=== PATIENT | female | born 1945 | race Caucasian/White ===

== ENCOUNTER 2017-11-30 18:08 | Emergency (ER) | payer OTHER ==
[2017-11-30 18:29] VITALS: BP 120/34
--- NOTE | 2017-11-30 18:58 | UC ---
Respiratory Complaint HPI - HPI Summary HPI Summary: C/O increased SOB last 3 days with some weakness. Fell down stairs today. - History of Current Complaint Stated Complaint: FLU SXS Hx Obtained From: Patient Onset/Duration: Sudden Onset, Lasting Days - 3, Worse Since - today Timing: Constant Severity Initially: Mild Severity Currently: Moderate Pain Intensity: 5 Character: Cough: Nonproductive Aggravating Factors: Exertion, Deep Breaths Alleviating Factors: Bronchodilator Associated Signs And Symptoms: Positive: Dyspnea, Fever, Chills, Nasal Congestion, Sinus Discomfort - Allergies/Home Medications Allergies/Adverse Reactions: Allergies Allergy/AdvReac Type Severity Reaction Status Date / Time MS Pseudoephedrine Allergy Intermediate Rash Verified 06/23/13 19:30 [Pseudoephedrine] MS Eggs or Egg-derived Allergy Unknown Unknown Verified 11/30/17 18:20 Products Reaction [Eggs or Egg-derived Details Products] Home Medications: Home Medications Aspirin Low Dose CHEW TAB* [Aspirin Low Dose TAB*] 81 mg PO DAILY 11/30/17 [ History Confirmed 11/30/17] Levothyroxine TAB* [Synthorid 112 MCG TAB*] 112 mcg PO DAILY 11/30/17 [History Confirmed 11/30/17] Lisinopril [Lisinopril 2.5 MG-] 2.5 mg PO DAILY 11/30/17 [History Confirmed ] Lovastatin [Altoprev] 40 mg PO DAILY 11/30/17 [History Confirmed 11/30/17] Pantoprazole Sodium [Protonix] 40 mg PO DAILY 11/30/17 [History Confirmed ] Spironolactone TAB* [Aldactone TAB 25 MG*] 25 mg PO DAILY 11/30/17 [History Confirmed 11/30/17] Torsemide TAB* [Demadex 20 MG*] 20 mg PO DAILY 11/30/17 [History Confirmed 11/30] metFORMIN* [Glucophage 500 MG TAB *] 500 mg PO DAILY 11/30/17 [History Confirmed 11/30/17] PMH/Surg Hx/FS Hx/Imm Hx Endocrine History: Diabetes, Hypothyroidism Cardiovascular History: Hypertension, Congestive Heart Failure Respiratory History: COPD - Surgical History Surgical History: Yes Surgery Procedure, Year, and Place: HYSTERECTOMY. CATARACS - Family History Known Family History: Positive: Diabetes - Social History Occupation: Retired Lives: With Family Alcohol Use: None Substance Use Type: None Smoking Status (MU): Former Smoker Have You Smoked in the Last Year: No When Did the Patient Quit Smoking/Using Tobacco: 2010 Review of Systems Constitutional: Fever, Chills ENT: Sore Throat, Nasal Discharge, Sinus Pain/Tenderness Respiratory: Shortness Of Breath, Cough Is Patient Immunocompromised?: No All Other Systems Reviewed And Are Negative: Yes Physical Exam Triage Information Reviewed: Yes Appearance: No Pain Distress, Ill-Appearing, Obese Vital Signs: Initial Vital Signs Temp 99.5 F 11/30/17 18:21 Pulse 93 11/30/17 18:21 Resp 24 11/30/17 18:21 BP 120/34 11/30/17 18:21 Pulse Ox 95 11/30/17 18:21 Vital Signs Reviewed: Yes Eyes: Positive: Conjunctiva Clear ENT: Positive: Pharynx normal, Nasal congestion, Sinus tenderness - frontal Neck exam: Normal Respiratory: Positive: Decreased breath sounds, Wheezing - diffuse expiratory wheezes Cardiovascular Exam: Normal Musculoskeletal: Positive: Strength Limited @ - diffuse with antalgic gait with oxygen Neurological Exam: Normal Psychological Exam: Normal Skin Exam: Normal UC Diagnostic Evaluation - Laboratory O2 Sat by Pulse Oximetry: 95 Re-Evaluation - Re-Evaluation First Eval Re-Evaluation Time: 19:37 Change: Improved - lungs clear now Respiratory Course/Dx - Differential Dx/Diagnosis Differential Diagnosis/HQI/PQRI: CHF, Exacerbation Of COPD, Lower Resp Infection , Sinusitis Provider Diagnoses: Acute URI. Acute sinusitis. COPD with acute exacerbation. Discharge - Sign-Out/Discharge Documenting (check all that apply): Discharge - Discharge Plan Condition: Stable Disposition: HOME Prescriptions: DOXYcycline CAP(*) [DOXYcycline 100MG CAP(*)] 100 mg PO BID #20 cap Ondansetron TAB* [Zofran 4 MG Tab*] 4 mg PO Q6H PRN #20 tab PRN Reason: Nausea predniSONE TAB* [Deltasone TAB*] 20 mg PO DAILY #18 tab Patient Education Materials: COPD (Chronic Obstructive Pulmonary Disease) (ED) , Sinusitis (ED), Doxycycline (By mouth), Prednisone (By mouth) Referrals: Iveth Ramos MD [Primary Care Provider] - 3 Days (Recheck breathing.) - Billing Disposition and Condition Condition: STABLE Disposition: HOME
[2017-11-30] MEDS ORDERED: methylPREDNISolone 125 MG* 2 ML VIAL IM ONE (19:01)
[2017-11-30] MEDS ORDERED: DOXYcycline CAP(*) 100 MG PO ONE (19:01)
[2017-11-30] MEDS ORDERED: Albuterol/Ipratropium NEB.SOL* Albuterol 2.5 MG/Ipratropium 0.5 MG 3 ML INH ONE (19:02)
[2017-11-30] MEDS ORDERED: Ondansetron ODT TAB* 4 MG PO ONE (19:07)
== END 2017-11-30 19:49 | disposition home or self-care (01) ==
LOC: UCCORT 18:08
DX: J06.9 Acute upper respiratory infection, unspecified (principal); J01.90 Acute sinusitis, unspecified; J44.1 Chronic obstructive pulmonary disease with (acute) exacerbation; Z88.8 Allergy status to other drugs, medicaments and biological substances
CPT/HCPCS: 87502; 96372; 99213; A9270-GY; G0463; J2930

== ENCOUNTER 2018-03-03 18:07 | Emergency (ER) | payer MEDICARE, OTHER ==
[2018-03-03 18:36] VITALS: BP 133/80
[2018-03-03] MEDS ORDERED: Albuterol/Ipratropium NEB.SOL* Albuterol 2.5 MG/Ipratropium 0.5 MG 3 ML INH ONE (18:47)
--- NOTE | 2018-03-03 18:56 | UC ---
Respiratory Complaint HPI - HPI Summary HPI Summary: Pt c/o worsening SOB, wheezing, X 3 days. Pt has hx of COPD. - History of Current Complaint Hx Obtained From: Patient ?: No Onset/Duration: Gradual Onset, Lasting Days, Still Present, Worse Since - onset Timing: Constant Severity Initially: Mild Severity Currently: Moderate Pain Intensity: 0 Character: Cough: Nonproductive Aggravating Factors: Exertion, Deep Breaths, Recumbent Position Alleviating Factors: Nothing Associated Signs And Symptoms: Positive: Wheezing, URI - Risk Factors Pulmonary Embolism Risk Factors: Negative Cardiac Risk Factors: Diabetes Pseudomonas Risk Factors: Chronic Lung Disease Tuberculosis Risk Factors: Diabetes <Tamar Kelly NP - Last Filed: 03/03/18 19:59> <Gloria Urbina - Last Filed: 03/04/18 07:08> - History of Current Complaint Chief Complaint: UCGeneralIllness Stated Complaint: CONGESTION Time Seen by Provider: 03/03/18 18:39 - Allergies/Home Medications Allergies/Adverse Reactions: Allergies Allergy/AdvReac Type Severity Reaction Status Date / Time egg Allergy Unknown Verified 03/03/18 18:37 Reaction Details pseudoephedrine Allergy Rash Verified 03/03/18 18:37 PMH/Surg Hx/FS Hx/Imm Hx Previously Healthy: No Endocrine History: Diabetes Cardiovascular History: Hypertension Respiratory History: COPD - Surgical History Surgical History: Yes Surgery Procedure, Year, and Place: HYSTERECTOMY. CATARACTS - Family History Known Family History: Positive: Diabetes - Social History Occupation: Retired Lives: With Family Alcohol Use: None Substance Use Type: None Smoking Status (MU): Former Smoker Have You Smoked in the Last Year: No When Did the Patient Quit Smoking/Using Tobacco: 2010 <Tamar Kelly NP - Last Filed: 03/03/18 19:59> Review of Systems Constitutional: Fatigue Skin: Negative Eyes: Negative ENT: Negative Respiratory: Shortness Of Breath, Cough Cardiovascular: Negative Gastrointestinal: Negative Genitourinary: Negative Motor: Negative Neurovascular: Negative Musculoskeletal: Negative Neurological: Negative Psychological: Negative Is Patient Immunocompromised?: No All Other Systems Reviewed And Are Negative: Yes <Tamar Kelly NP - Last Filed: 03/03/18 19:59> Physical Exam Triage Information Reviewed: Yes Appearance: Ill-Appearing Vital Signs: Initial Vital Signs Temp 98.3 F 03/03/18 18:27 Pulse 74 03/03/18 18:27 Resp 24 03/03/18 18:27 BP 133/80 03/03/18 18:27 Pulse Ox 96 03/03/18 18:27 Vital Signs Reviewed: Yes Eye Exam: Normal ENT: Positive: Nasal congestion Dental Exam: Normal Neck exam: Normal Respiratory Exam: Other Respiratory: Positive: Wheezing Cardiovascular: Positive: Murmur:Sys:Grade _?_/ Musculoskeletal Exam: Normal Neurological Exam: Normal Psychological Exam: Normal Skin Exam: Normal <Tamar Kelly NP - Last Filed: 03/03/18 19:59> Vital Signs: Initial Vital Signs Temp 98.3 F 03/03/18 18:27 Pulse 74 03/03/18 18:27 Resp 24 03/03/18 18:27 BP 133/80 03/03/18 18:27 Pulse Ox 96 03/03/18 18:27 <Gloria Urbina - Last Filed: 03/04/18 07:08> Diagnostic Evaluation - Laboratory O2 Sat by Pulse Oximetry: 96 <Tamar Kelly NP - Last Filed: 03/03/18 19:59> Respiratory Course/Dx - Differential Dx/Diagnosis Differential Diagnosis/HQI/PQRI: Bronchitis, Exacerbation Of COPD Provider Diagnoses: exacerbation of COPD. bronchitis <Tamar Kelly NP - Last Filed: 03/03/18 19:59> Discharge - Sign-Out/Discharge Documenting (check all that apply): Discharge/Admit/Transfer - Billing Disposition and Condition Condition: STABLE Disposition: Home <Tamar Kelly NP - Last Filed: 03/03/18 19:59> - Billing Disposition and Condition Condition: STABLE Disposition: Home <Gloria Urbina - Last Filed: 03/04/18 07:08> - Discharge Plan Condition: Stable Disposition: HOME Prescriptions: Azithromycin TAB* [Zithromax TAB (Z-GREYSON) 250 mg #6 tabs] 2 tab PO .TODAY, THEN 1 DAILY #1 greyson predniSONE TAB* [Deltasone 20 MG TAB*] 20 mg PO DAILY #3 tab Patient Education Materials: Acute Bronchitis (ED), Wheezing (ED) Referrals: Iveth Ramos MD [Primary Care Provider] - If Needed Additional Instructions: Please follow up with your PCP or return to clinic as needed. Attestation Statement User Type: Provider - I was available for consult. This patient was seen by the [facility]. The patient was not presented to, seen by, or examined by me. -Jay <Gloria Urbina - Last Filed: 03/04/18 07:08>
--- NOTE | 2018-03-03 19:52 | RAD ---
INDICATION: Wheezing and shortness of breath COMPARISON: None TECHNIQUE: PA and lateral views of the chest were obtained. FINDINGS: The heart and mediastinum are normal in size and contour. The stigmata of chronic obstructive pulmonary disease including hyperaerated lungs, flattened diaphragm and increased retrosternal space is seen. Otherwise the lungs are grossly clear. There is no evidence of large pleural effusion. Visualized bones are normal for the patient's age. There is no radiographic evidence of free air beneath the diaphragm IMPRESSION: APPEARANCE OF THE CHEST X-RAY IS CONSISTENT WITH CHRONIC OBSTRUCTIVE PULMONARY DISEASE WITHOUT RADIOGRAPHICALLY APPARENT ACUTE ABNORMALITY.
== END 2018-03-03 19:33 | disposition home or self-care (01) ==
LOC: UCCORT 18:07
DX: J44.1 Chronic obstructive pulmonary disease with (acute) exacerbation (principal); J40 Bronchitis, not specified as acute or chronic; E11.9 Type 2 diabetes mellitus without complications; I10 Essential (primary) hypertension; Z91.012 Allergy to eggs; Z88.8 Allergy status to other drugs, medicaments and biological substances; Z87.891 Personal history of nicotine dependence
CPT/HCPCS: 71046; 99212; A9270-GY; G0463

== ENCOUNTER 2018-06-14 14:41 | Emergency (ER) | payer OTHER, MEDICARE ==
--- OUTSIDE RECORDS SUMMARY | 2018-06-14 15:15 | XMS REPORT | Continuity of Care Document ---
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 [employer] Continuous Process Unavailable Iveth Ramos MD Primary Care Physician Unavailable Payers Type Date Identification Numbers Payment Provider Subscriber Effective: 2018 Policy Number: [id number] Medicare [place] Shauna Bender PayID: [id number] [address] [place] [address] Policy Number: [id number] [facility] Plan Shauna Bender PayID: [id number] [address] [place] [address] Advance Directives Description No Information Available Problems Description No Information Family History Description No Information Available Social History Type Date Description Comments Sex Unknown Allergies, Adverse Reactions, Alerts Date Description Reaction Status Severity Comments 06/10/2018 Sulfa Antibiotics Active Medications Medication Date Status Form Strength Qnty SIG Indications Ordering Provider Lisinopril / Active Tablets 2.5mg Unknown 0000 Levothyroxine / Active Tablets 100mcg Unknown Sodium 0000 Torsemide / Active Tablets 20mg Unknown 0000 Pantoprazole / Active Tablets DR 40mg Unknown Sodium 0000 Atorvastatin / Active Tablets 40mg Unknown Calcium 0000 Ipratropium / Active Solution 0.06% Unknown [place] 0000 Albuterol / Active Nebulizer (2.5mg/3ML Unknown Sulfate 0000 ) 0.083% Metformin HCL ER / Active Tablets ER 500mg Unknown 0000 24HR Spironolactone 00// Active Tablets 25mg Unknown 0000 Aspir-81 / Active Tablets DR 81mg i tab Unknown 0000 everyday Immunizations Description No Information Available Vital Signs Date Vital Result Comment 06/10/2018 9:33am BP Systolic 108 mmHg BP Diastolic 68 mmHg Height 66 inches 5'6" Weight 208.00 lb BMI (Body Mass Index) 33.6 kg/m2 Heart Rate 75 /min Respiratory Rate 18 /min Body Temperature 97.3 F O2 % BldC Oximetry 96 % Results Description No Information Available Procedures Description No Information Available Encounters Description No Information Available Plan of Treatment No Information Available
--- OUTSIDE RECORDS SUMMARY | 2018-06-14 15:16 | XMS REPORT ---
:1945 External Reference #:[id number] Organization [facility] Address [address], [address] [place] [address] Phone [phone] Care Team Providers Name Role Phone Iveth Ramos MD Care Team Information Alley Tender Unavailable Iveth Ramos MD Primary Care Physician Unavailable Payers Type Date Identification Numbers Payment Provider Subscriber Commercial Policy Number: [id number] [employer] Shauna Bender PayID: [id number] [address] [address] [place] [address] Problems Date Description Provider Status Onset: 08/11/2015 Benign essential hypertension Alesha Gipson MD Active Onset: 08/17/2015 Pure hypercholesterolemia Active Onset: 09/25/2015 Edema Shannen Noble, ANP Active Onset: 09/25/2015 Chronic diastolic heart failure Shannen Noble, ANP Active Onset: 09/25/2015 Chronic fatigue syndrome Shannen Noble, ANP Active Onset: 09/25/2015 Dyspnea Shannen Noble, ANP Active Onset: 09/25/2015 Chest pain Shannen Noble, ANP Active Onset: 09/25/2015 Mixed hyperlipidemia Shannen Noble, ANP Active Onset: 03/17/2016 Chronic obstructive pulmonary Shannen Noble, ANP Active disease w (acute) exacerbation Onset: 02/20/2018 Chronic obstructive lung disease Oc Griffith Active M.D., [facility] Onset: 02/20/2018 Obstructive sleep apnea syndrome Oc Griffith Active M.D., [facility] Onset: 02/20/2018 Ex-smoker Oc Griffith Active M.D., [facility] Onset: 02/20/2018 Hyperlipidemia Oc Griffith Active M.D., [facility] Onset: 04/07/2018 Hypothyroidism Devi Odom MD Active Onset: 04/07/2018 Type 2 diabetes mellitus Devi Odom MD Active Onset: 04/07/2018 Pressure ulcer of unspecified Devi Odom MD Active buttock, stage 1 Family History Date Family Member(s) Problem(s) Comments General CAD Father CAD Mother CAD Social History Type Date Description Comments Marital Status Lives With Diet Patient is on a low sodium diet Work Status Retired ADL's/IADL's Independent with all ADL's Cigarette Use 2012 Quit ETOH Use Denies alcohol use Smoking Patient is a former smoker Recreational Drug Use Denies Drug Use Daily Caffeine Current Caffeine User 3 cups daily Allergies, Adverse Reactions, Alerts Date Description Reaction Status Severity Comments 10/18/2014 Sulfa active 10/18/2014 Eggs active 10/18/2014 Celexa active Medications Medication Date Status Form Strength Qnty SIG Indications Ordering Provider Levothyroxine 05/20 Active Tablets 100mcg 90tab 1 by mouth Ilene, s every day MD Devi Incruse Ellipta 05/13 Active Aerosol 62.5mcg/I 1mont take 1 puff nh h once daily. MD Jacques Polyethylene 04/18 Active Packet 3350NF 28uni Take one K59.00 Gagen, Glycol 335 ts package Bianca with 10 oz e, MS, of water [employer], every day CNM Atrovent 04/15 Active Solution 0.06% use 2 J01.90 Gagen sprays in Bianca each e, MS, nostril [employer], twice a day CNM Multivitamin 04/07 Active Tablets 1 by mouth Ilene, Adults every day MD Devi Vitamin E 04/07 Active Capsules 400Unit 1 tab a day Ilene, MD Devi Nebulizer 08/07 Active Kit 1unit please Kheti, Kit/Tubing/Mouth /2016 s provide MD Jacques piece patient with 1 kit. nebulizer, tubing, mouth piece. diagnosis: copd Torsemide 09/23 Active Tablets 20mg 90tab 1 by mouth R60.0 Avelina, /2015 s every day Tamar March MSN, [facility] Spironolactone 09/23 Active Tablets 25mg 90tab 1 by mouth R60.0 Gipson, /2015 s every day MD Alesha Lisinopril Active Tablets 2.5mg 1 by mouth Unknown / every day Aspir-[address] 81mg 1 by mouth Unknown every day Albuterol Active Nebulizer (2.5mg/3M 180ml use 1 vial Gagen, Sulfate /0000 L) 0.083% every 6 Bianca hours as e, MS, needed for [employer], shortness CNM of breath. icd code j44.9 copd Pant[address] Active Tablets [address] 40mg 1 by mouth Unknown Sodium / every day Symbicort Active Aerosol 160-4.5mc 2 twice Unknown g/Act puff twice a day Atorvastatin Active Tablets 40mg 1 by mouth Unknown Calcium every day Metformin HCL Active Tablets 500mg take one Unknown tablet daily Amoxicillin/Clav 04/15 Hx Tablets 875-125mg 14tab take one J01.90 Gagen , ulanate /2017 s tablet Bianca Potassium - every 12 e, MS, 04/18 hours [employer], CNM Doxycycline 04/15 Hx Tablets 100mg 14tab Take one J01.90 Gagen, Monohydrate /2017 s tablet two Bianca - times a day e, MS, 04/15 [employer], CNM Levofloxacin 04/15 Hx Tablets 500mg 5tabs Take one J01.90 Gagen, tablet Bianca - every day e, MS, 04/15 [employer], CNM Levofloxacin 04/15 Hx Tablets 750mg 5tabs Take one J01.90 Gagen, tablet Bianca - every day e, MS, 04/15 [employer], CNM Pseudoephedrine 04/15 Hx Tablets 30mg 30tab Take one J01.90 Gagen, HCL s every 4-6 Bianca - hours as e, MS, 04/15 needed for [employer] congestion CNM Loratadine 04/15 Hx Tablets 10mg 1tabs Take one J01.90 Gagen, tablet Bianca - every e, MS, 04/15 morning [employer], CNM Fluticasone 04/15 Hx Suspension 50mcg/Act 31.6m To use 1 or J01.90 Gagen, Propionate Nasal l 2 sprays in Bianca Socorro Allergy - each e, MS, Relief 24- Hour 04/15 nostril [employer], CNM Amoxicillin/Clav 04/15 Hx Tablets 875-125mg 14tab take one J01.90 Gagen , ulanate s tablet Bianca Potassium - every 12 e, MS, 05/20 hours [employer], CNM Atrovent HFA 04/15 Hx Aerosol 17mcg/Act 12.90 use 2 J01.90 Gagen 0gm sprays in Bianca - each e, MS, 04/15 nostril [employer] twice a day CNM Daliresp 02/18 Hx Tablets 500mcg 30tab 1 by mouth J44.9 Kheti, s every day MD Jacques - 03/19 Incruse Ellipta 02/18 Hx Aerosol 62.5mcg/I 1mont take 1 puff J44.9 Kh nh h once daily. MD Jacques Levoxyl Hx Tablets 125mcg 1 po daily Unknown /0000 - 04/07 Estroven + Hx Tablets 1/2 weekly Unknown Energy /0000 Maximumstrength Omeprazole [address] 20mg 1 by mouth Unknown /0000 every day Lovastatin 00 Hx Tablets 40mg 1 by mouth Unknown /0000 every day Tramadol HCL Hx Tablets 50mg take one Unknown /0000 tablet by mouth every 4 hours as needed pain. Spiriva Respimat 00 Hx Aerosol 2.5mcg/Ac take 1 puff Unknown /0000 t once daily. - 07/23 Pulmicort 00 Hx Aerosol 180mcg/Ac 1 puff Unknown Flexhaler /0000 t twice a day - 03/20 Furosemide 0000 Hx Tablets 40mg 1 by mouth R60.0 Unknown /0000 every day - 09/23 Cephalexin Hx Capsules 500mg 3 tabs po Unknown / daily Levothyroxine Hx Tablets 112mcg 90tab 1 tab by Ilene, Sodium / s mouth daily MD Devi - on an empty 05/20 Vital Signs Date Vital Result Comment 05/20/2018 BP Systolic Sitting Left Arm 134 mmHg BP Diastolic Sitting Left Arm 80 mmHg Body Temperature 96.7 F Heart Rate 77 /min Respiratory Rate 20 /min Height 66 inches 5'6" Weight 209.00 lb BMI (Body Mass Index) 33.7 kg/m2 BSA (Body Surface Area) 2.04 m2 [place] body weight in kilograms 59 O2 % BldC Oximetry 94 % w O2 @ 2.5l via n/c 04/18/2018 BP Systolic Sitting Left Arm 120 mmHg BP Diastolic Sitting Left Arm 64 mmHg Body Temperature 97.8 F Heart Rate 79 /min Respiratory Rate 24 /min Height 66 inches 5'6" Weight 206.00 lb BMI (Body Mass Index) 33.2 kg/m2 BSA (Body Surface Area) 2.03 m2 [place] body weight in kilograms 59 O2 % BldC Oximetry 95 % w/2.5L O2 via n/c 04/15/2018 BP Systolic 118 mmHg BP Diastolic 67 mmHg Body Temperature 97.5 F Heart Rate 71 /min Respiratory Rate 20 /min Height 66 inches 5'6" Weight 206.00 lb BMI (Body Mass Index) 33.2 kg/m2 BSA (Body Surface Area) 2.03 m2 [place] body weight in kilograms 59 O2 % BldC Oximetry 96 % 04/07/2018 BP Systolic Sitting Left Arm 126 mmHg BP Diastolic Sitting Left Arm 71 mmHg Body Temperature 97.6 F Heart Rate 70 /min Respiratory Rate 24 /min Height 66 inches 5'6" Weight 208.00 lb BMI (Body Mass Index) 33.6 kg/m2 BSA (Body Surface Area) 2.03 m2 [place] body weight in kilograms 59 O2 % BldC Oximetry 96 % 02 @ 2.5l via n/c 03/19/2018 BP Systolic Sitting Left Arm 100 mmHg BP Diastolic Sitting Left Arm 68 mmHg Heart Rate 79 /min Respiratory Rate 18 /min Height 66 inches 5'6" Weight 207.00 lb BMI (Body Mass Index) 33.4 kg/m2 BSA (Body Surface Area) 2.03 m2 [place] body weight in kilograms 59 O2 % BldC Oximetry 96 % 2.5L/Min 02/20/2018 BP Systolic Sitting Left Arm 130 mmHg BP Diastolic Sitting Left Arm 70 mmHg Heart Rate 85 /min Height 66 inches 5'6" Weight 207.00 lb BMI (Body Mass Index) 33.4 kg/m2 BSA (Body Surface Area) 2.03 m2 [place] body weight in kilograms 59 O2 % BldC Oximetry 972. % 08/21/2017 BP Systolic Sitting Left Arm 128 mmHg BP Diastolic Sitting Left Arm 60 mmHg Heart Rate 87 /min Respiratory Rate 16 /min Height 66 inches 5'6" Weight 210.00 lb BMI (Body Mass Index) 33.9 kg/m2 BSA (Body Surface Area) 2.04 m2 [place] body weight in kilograms 59 O2 % BldC Oximetry 97 % 2.5 L 08/19/2017 BP Systolic Sitting Right Arm 112 mmHg BP Diastolic Sitting Right Arm 64 mmHg Heart Rate 80 /min Respiratory Rate 16 /min Height 66 inches 5'6" Weight 209.00 lb BMI (Body Mass Index) 33.7 kg/m2 BSA (Body Surface Area) 2.04 m2 [place] body weight in kilograms 59 02/18/2017 BP Systolic Sitting Right Arm 112 mmHg BP Diastolic Sitting Right Arm 64 mmHg Heart Rate 78 /min Respiratory Rate 16 /min Height 66 inches 5'6" Weight 214.00 lb BMI (Body Mass Index) 34.5 kg/m2 BSA (Body Surface Area) 2.06 m2 [place] body weight in kilograms 59 O2 % BldC Oximetry 94 % 2.5L 02/13/2017 BP Systolic Sitting Left Arm 106 mmHg BP Diastolic Sitting Left Arm 60 mmHg Heart Rate 60 /min Respiratory Rate 16 /min Height 66 inches 5'6" Weight 214.00 lb BMI (Body Mass Index) 34.5 kg/m2 BSA (Body Surface Area) 2.06 m2 [place] body weight in kilograms 59 10/15/2016 BP Systolic Sitting Left Arm 104 mmHg BP Diastolic Sitting Left Arm 60 mmHg Heart Rate 79 /min Respiratory Rate 16 /min Height 66 inches 5'6" Weight 218.00 lb BMI (Body Mass Index) 35.2 kg/m2 BSA (Body Surface Area) 2.07 m2 07/23/2016 BP Systolic Sitting Resting Right Arm 106 mmHg BP Diastolic Sitting Resting Right Arm 61 mmHg Heart Rate 75 /min Respiratory Rate 18 /min Height 66 inches 5'6" Weight 218.00 lb BMI (Body Mass Index) 35.2 kg/m2 BSA (Body Surface Area) 2.07 m2 O2 % BldC Oximetry 932 % 03/20/2016 BP Systolic Sitting Left Arm 118 mmHg BP Diastolic Sitting Left Arm 70 mmHg Heart Rate 78 /min Height 66 inches 5'6" Weight 220.00 lb BMI (Body Mass Index) 35.5 kg/m2 BSA (Body Surface Area) 2.08 m2 [place] body weight in kilograms 59 03/15/2016 BP Systolic Sitting Left Arm 102 mmHg BP Diastolic Sitting Left Arm 66 mmHg Heart Rate 80 /min Respiratory Rate 16 /min Height 66 inches 5'6" Weight 221.00 lb BMI (Body Mass Index) 35.7 kg/m2 BSA (Body Surface Area) 2.09 m2 11/23/2015 BP Systolic Sitting Left Arm 102 mmHg BP Diastolic Sitting Left Arm 68 mmHg Heart Rate 68 /min Respiratory Rate 16 /min Height 66 inches 5'6" Weight 228.00 lb BMI (Body Mass Index) 36.8 kg/m2 BSA (Body Surface Area) 2.11 m2 09/23/2015 BP Systolic Sitting Left Arm 130 mmHg BP Diastolic Sitting Left Arm 70 mmHg Heart Rate 71 /min Height 66 inches 5'6" Weight 232.00 lb BMI (Body Mass Index) 37.4 kg/m2 BSA (Body Surface Area) 2.13 m2 08/17/2015 BP Systolic Sitting Right Arm 110 mmHg BP Diastolic Sitting Right Arm 66 mmHg Heart Rate 74 /min Respiratory Rate 18 /min Height 65 inches 5'5" Weight 231.00 lb BMI (Body Mass Index) 38.4 kg/m2 BSA (Body Surface Area) 2.10 m2 08/10/2015 BP Systolic Sitting Left Arm 106 mmHg BP Diastolic Sitting Left Arm 64 mmHg Heart Rate 78 /min Respiratory Rate 18 /min Height 65 inches 5'5" Weight 229.00 lb BMI (Body Mass Index) 38.1 kg/m2 BSA (Body Surface Area) 2.10 m2 O2 % BldC Oximetry 97 % 2.5L Results Test Date Test Result H/L Range Note Comprehensive Metabolic Panel 05/08/2018 Glucose 113 mg/dL High 74-106 1 BUN 12 mg/dL 7-18 1 Creatinine 0.7 mg/dL 0.6-1.3 1 Glom Filtration Rate, Estimate >60 mL/min >60 1 If >60 mL/min >60 1, 2 BUN/Creat 17.1 ratio 1 Sodium 138 mmol/L 136-145 1 Potassium 3.8 mmol/L 3.5-5.1 1 Chloride 99 mmol/L 98-107 1 Carbon Dioxide 31 mmol/L 21-32 1 Anion Gap 8 mEq/L 8-16 1 Calcium 8.9 mg/dL 8.5-10.1 1 Total Protein 7.5 g/dL 6.4-8.2 1 Albumin 3.4 g/dL 3.4-5.0 1 Globulin 4.1 g/dL 1.9-4.3 1 Alb/Glob 0.8 ratio 1 Bilirubin,Total 0.4 mg/dL 0.2-1.0 1 Sgot/Ast 14 U/L Low 15-37 1, 3 SGPT/Alt 23 U/L 12-78 1 Alkaline Phosphatase 98 U/L 45-117 1 LDL Cholesterol Profile 05/08/2018 Cholesterol 133 mg/dL <200 1, 4 Triglycerides 71 mg/dL <150 1, 5 HDL Cholesterol 61 mg/dL >40 1, 6 LDL-Cholesterol 58 mg/dL < 100 1, 7 Glycohemoglobin A1c 05/08/2018 Glycohemoglobin (A1c) 6.2 % 4.2-6.3 1, 8 eAG 131 mg/dL 1 Laboratory test finding 05/08/2018 Thyroid Stim Hormone 0.15 uIU/mL Low 0.30-4.20 1 Free T4 1.24 ng/dL 0.76-1.46 1 CBS W/Automated Diff 05/08/2018 White Blood Count 5.4 K/uL 3.1-10.7 1 Red Blood Count 4.82 M/uL 3.90-5.40 1 Hemoglobin 12.7 gm/dL 11.6-15.8 1 Hematocrit 39.6 % 36.0-46.1 1 Mean Cell Volume 82.2 fl 80.9-99.0 1 Mean Corpuscular HGB 26.3 pg 25.9-32.7 1 Mean Corpuscular HGB Conc 32.1 g/dL 30.8-34.3 1 Platelet Count 243 K/uL 155-360 1 Red Cell Distri Width SD 46.8 fl 3-47 1 Red Cell Distri Width %CV 15.8 % High 11.7-14.4 1 Mean Platelet Volume 9.6 fL 8.9-12.4 1 Neut% 57.9 % 40.4-72.8 1 Lymph % 31.2 % 20.0-42.0 1 [place] % 6.9 % 4.3-13.2 1 Eo% 3.6 % 0.0-6.6 1 Bas% 0.4 % 0.0-1.1 1 Neut# 3.10 K/uL 1.8-7.0 1 Lymph # 1.67 K/uL 1.0-4.0 1 [place] # 0.37 K/uL 0.3-0.9 1 Eos # 0.19 K/uL 0.0-0.5 1 Baso # 0.02 K/uL 0.0-0.1 1 Laboratory test finding 05/08/2018 Vitamin D,25-Hydroxy 36.4 ng/mL 30.0- 100.0 1, 9 Urine Dipstick 04/07/2018 Ua Color yellow Yellow Ua Clarity clear Clear Ua Leuko trace Negative Ua Nitrite - Negative Ua Urobilinogen - Low 0.2 - 1.0 E.U./dL Ua Protein - Negative Ua PH 6 Low 6.5-7.5 Ua Blood - Negative Ua Specific [place] 1.015 1.010-1.030 Ua Ketones - Negative Ua Bilirubin - Negative Ua Glucose - Negative Microalbumin,Random Urine 04/07/2018 Microalbumin,Urine < 5.0 < 20.0 10 mg/L Microalb/Creat 04/07/2018 Microalbumin/Creatinine TNP < 30.0 10, 11 Ratio,Random Ratio ug/mgCrt Urine Creatinine Conc < 5 mg/dL 10 Laboratory test finding 01/19/2017 Magnesium 2.4 mg/dL 1.8-2.4 12 Basic Metabolic Panel 01/19/2017 Glucose 135 mg/dL High 74-106 12 BUN 23 mg/dL High 7-18 12 Creatinine 0.9 mg/dL 0.6-1.3 12 Glom Filtration Rate, Estimate >60 mL/min >60 12 If >60 mL/min >60 12, 13 BUN/Creat 25.5 ratio 12 Sodium 136 mmol/L 136-145 12 Potassium 4.1 mmol/L 3.5-5.1 12 Chloride 95 mmol/L Low 98-107 12 Carbon Dioxide 38 mmol/L High 21-32 12 Anion Gap 3 mEq/L Low 8-16 12 Calcium 9.3 mg/dL 8.5-10.1 12 Basic Metabolic Panel 10/04/2015 Glucose 110 mg/dL High 74-106 BUN 11 mg/dL 7-18 Creatinine 0.7 mg/dL 0.6-1.3 Glom Filtration Rate, Estimate >60 mL/min >60 If >60 mL/min >60 14 BUN/Creat 15.7 ratio Sodium 137 mmol/L 136-145 Potassium 3.7 mmol/L 3.5-5.1 Chloride 99 mmol/L 98-107 Carbon Dioxide 32 mmol/L 21-32 Anion Gap 6 mEq/L Low 8-16 Calcium 8.4 mg/dL Low 8.5-10.1 Laboratory test finding 08/20/2015 Magnesium 1.8 mg/dL 1.8-2.4 Thyroid Stim Hormone 0.36 uIU/mL 0.36-3.74 Liver Function Tests 08/20/2015 Total Protein 6.9 g/dL 6.4-8.2 Albumin 3.0 g/dL Low 3.4-5.0 Globulin 3.9 g/dL 1.9-4.3 Alb/Glob 0.8 ratio Bilirubin,Total 0.4 mg/dL 0.2-1.0 Bilirubin,Direct 0.1 mg/dL 0.0-0.2 Bilirubin,Indirect 0.3 mg/dL 0.0-0.9 Sgot/Ast 18 U/L 15-37 SGPT/Alt 34 U/L 12-78 Alkaline Phosphatase 96 U/L 45-117 LDL Cholesterol Profile 08/20/2015 Cholesterol 168 mg/dL <200 15 Triglycerides 70 mg/dL <150 16 HDL Cholesterol 62 mg/dL >40 17 LDL-Cholesterol 92 mg/dL < 100 18 CBC W/Automated Diff 08/20/2015 White Blood Count 5.7 K/uL 3.1-10.7 Red Blood Count 4.48 M/uL 3.90-5.40 Hemoglobin 12.0 gm/dL 11.6-15.8 Hematocrit 36.7 % 36.0-46.1 Mean Cell Volume 81.9 fl 80.9-99.0 Mean Corpuscular HGB 26.8 pg 25.9-32.7 Mean Corpuscular HGB Conc 32.7 g/dL 30.8-34.3 Platelet Count 243 K/uL 155-360 Red Cell Distri Width SD 47.8 fl High 3-47 Red Cell Distri Width %CV 16.2 % High 11.7-14.4 Mean Platelet Volume 9.8 fL 8.9-12.4 Neut% 69.3 % 40.4-72.8 Lymph % 25.0 % 17.0-46.1 [place] % 5.4 % 4.3-13.2 Eo% 0.0 % 0.0-6.6 Bas% 0.3 % 0.0-1.1 Neut# 3.96 K/uL 1.0-7.0 Lymph # 1.43 K/uL Low 1.8-7.0 [place] # 0.31 K/uL 0.3-0.9 Eos # 0.00 K/uL 0.0-0.5 Baso # 0.02 K/uL 0.0-0.1 Basic Metabolic Panel 08/20/2015 Glucose 140 mg/dL High 74-106 BUN 7 mg/dL 7-18 Creatinine 0.7 mg/dL 0.6-1.3 Glom Filtration Rate, Estimate >60 mL/min >60 If >60 mL/min >60 19 BUN/Creat 10.0 ratio Sodium 136 mmol/L 136-145 Potassium 3.4 mmol/L Low 3.5-5.1 Chloride 97 mmol/L Low 98-107 Carbon Dioxide 30 mmol/L 21-32 Anion Gap 9 mEq/L 8-16 Calcium 8.7 mg/dL 8.5-10.1 Laboratory test finding 08/02/2015 Anion Gap 8 8-16 BUN/Creatinine Ratio 22.5 Basophils # (Auto) 0.01 0.0-0.1 Basophils (%) (Auto) 0.1 0.0-1.1 Blood Urea Nitrogen 18 7-18 Calcium Level 9.1 8.5-10.1 Carbon Dioxide Level 31 21-32 Chloride Level 93 Low 98-107 Creatinine 0.8 0.6-1.3 Eosinophils # (Auto) 0.00 0.0-0.5 Eosinophils (%) (Auto) 0.0 0.0-6.6 Glucose Screen 198 High 74-106 Hematocrit 39.1 36.0-46.1 Hemoglobin 12.7 11.6-15.8 Lymphocytes # (Auto) 1.10 Low 1.8-7.0 Lymphocytes (%) (Auto) 12.9 Low 17.0-46.1 Mean Corpuscular Hemoglobin 26.6 25.9-32.7 Mean Corpuscular Hemoglobin Concent 32.5 30.8-34.3 Mean Corpuscular Volume 82.0 80.9-99.0 Mean Platelet Volume 9.7 8.9-12.4 Monocytes # (Auto) 0.33 0.3-0.9 Monocytes (%) (Auto) 3.9 Low 4.3-13.2 Neutrophils # (Auto) 7.06 High 1.0-7.0 Neutrophils (%) (Auto) 83.1 High 40.4-72.8 Platelet Count 286 155-360 Potassium Level 4.3 3.5-5.1 RDW Coefficient of Variation 16.2 High 11.7-14.4 Red Blood Count 4.77 3.90-5.40 Red Cell Distribution Width 47.5 High 3-47 Sodium Level 132 Low 136-145 White Blood Count 8.5 3.1-10.7 Laboratory test finding 07/31/2015 Thyroid Stimulating 0.05 Low 0.36-3.74 Hormone (TSH) Laboratory test finding 07/30/2015 Urine Bilirubin Negative Negative Urine Blood Negative Negative Urine Clarity Clear Clear Urine Color Straw Yellow Urine Glucose (Ua) Negative Negative Urine Ketones Negative Negative Urine Leukocyte Esterase Negative Negative Urine Nitrite Negative Negative Urine Protein Negative Negative Urine Specific [place] 1.010 1.010-1.030 Urine Urobilinogen 0.2 0.2-1.0 Urine pH 8.0 High 6.5-7.5 Laboratory test finding 07/30/2015 Alanine Aminotransferase (Alt/SGPT) 39 12-78 Albumin 3.2 Low 3.4-5.0 Albumin/Globulin Ratio 0.8 Alkaline Phosphatase 94 45-117 Aspartate Amino Transf (Ast/Sgot) 21 15-37 Blood Gas Liter Flow 3 0-20 Blood Gas Specimen Type Oxygen Globulin 4.1 1.9-4.3 Inr International Normalized Ratio 1.0 0.9-1.1 Oxygen Delivery Device Nasal Cannula Pro-B-Type Natriuretic Peptide 103.0 <125 Prothrombin Time 13.4 12.1-14.9 Total Bilirubin 0.3 0.2-1.0 Total Protein 7.3 6.4-8.2 Venous Blood Base Excess 6.5 Venous Blood Hco3 31.7 Venous Blood Oxygen Saturation 94.3 60-80 Venous Blood pCO2 at Patient Temp 48 45-50 Venous Blood pH 7.44 7.25-7.55 Venous Blood pO2 at Patient Temp 70 High 40-60 Laboratory test finding 07/09/2015 Urine Bilirubin Negative Negative Urine Blood Negative Negative Urine Clarity Clear Clear Urine Color Straw Yellow Urine Glucose (Ua) Negative Negative Urine Ketones Negative Negative Urine Leukocyte Esterase Negative Negative Urine Nitrite Negative Negative Urine Protein Negative Negative Urine Urobilinogen 0.2 0.2-1.0 Urine pH 7.0 6.5-7.5 Laboratory test finding 07/09/2015 Alanine Aminotransferase (Alt/SGPT) 32 12-78 Albumin 3.3 Low 3.4-5.0 Albumin/Globulin Ratio 0.8 Alkaline Phosphatase 101 45-117 Anion Gap 6 Low 8-16 Aspartate Amino Transf (Ast/Sgot) 13 Low 15-37 BUN/Creatinine Ratio 12.8 Basophils # (Auto) 0.01 0.0-0.1 Blood Urea Nitrogen 9 7-18 Calcium Level 8.8 8.5-10.1 Carbon Dioxide Level 29 21-32 Chloride Level 100 98-107 Creatinine 0.7 0.6-1.3 Differential Total Cells Counted 100 Eosinophils # (Auto) 0.00 0.0-0.5 Globulin 4.1 1.9-4.3 Glucose Screen 144 High 74-106 Hematocrit 38.6 36.0-46.1 Hemoglobin 12.1 11.6-15.8 Lymphocytes # (Auto) 0.76 Low 1.8-7.0 Lymphocytes % 7 Low 17-56 Mean Corpuscular Hemoglobin 25.6 Low 25.9-32.7 Mean Corpuscular Hemoglobin Concent 31.3 30.8-34.3 Mean Corpuscular Volume 81.6 80.9-99.0 Mean Platelet Volume 10.0 8.9-12.4 Monocytes # (Auto) 0.13 Low 0.3-0.9 Monocytes % 2 0-10 Neutrophils # (Auto) 7.11 High 1.0-7.0 Neutrophils % 91 High 33-73 Platelet Count 242 155-360 Platelet Estimate Normal Potassium Level 4.2 3.5-5.1 RDW Coefficient of Variation 16.4 High 11.7-14.4 Red Blood Count 4.73 3.90-5.40 Red Cell Distribution Width 48.1 High 3-47 Sodium Level 135 Low 136-145 Total Bilirubin 0.2 0.2-1.0 Total Protein 7.4 6.4-8.2 White Blood Count 8.0 3.1-10.7 Laboratory test finding 07/08/2015 Basophils (%) (Auto) 0.3 0.0-1.1 Eosinophils (%) (Auto) 0.2 0.0-6.6 Indirect Bilirubin 0.1 0.0-0.9 Lymphocytes (%) (Auto) 38.8 17.0-46.1 Monocytes (%) (Auto) 4.9 4.3-13.2 Neutrophils (%) (Auto) 55.8 40.4-72.8 Total Creatine Kinase 154 26-192 Laboratory test finding 06/13/2015 Urine Bilirubin Negative Negative Urine Blood Negative Negative Urine Clarity Clear Clear Urine Color Yellow Yellow Urine Epithelial Cells Few None Seen Urine Glucose (Ua) Negative Negative Urine Ketones Trace High Negative Urine Leukocyte Esterase Trace High Negative Urine Nitrite Negative Negative Urine Protein Negative Negative Urine Specific [place] 1.015 1.010-1.030 Urine Urobilinogen 1.0 0.2-1.0 Urine pH 6.0 Low 6.5-7.5 Laboratory test finding 06/04/2015 Anion Gap 6 Low 8-16 Carbon Dioxide Level 30 21-32 Chloride Level 99 98-107 Magnesium Level 1.8 1.8-2.4 Potassium Level 3.7 3.5-5.1 Sodium Level 135 Low 136-145 Laboratory test 04/24/2015 Respiratory Culture Organism: Yeast Like finding Organism Laboratory test 04/24/2015 Anion Gap 2 Low 8-16 finding BUN/Creatinine Ratio 15.0 Blood Urea Nitrogen 12 7-18 Calcium Level 9.4 8.5-10.1 Carbon Dioxide Level 36 21-32 Chloride Level 95 Low 98-107 Creatinine 0.8 0.6-1.3 Glucose Screen 165 High 74-106 Hematocrit 41.6 36.0-46.1 Hemoglobin 13.1 11.6-15.8 Mean Corpuscular Hemoglobin 25.3 Low 25.9-32.7 Mean Corpuscular Hemoglobin Concent 31.5 30.8-34.3 Mean Corpuscular Volume 80.3 Low 80.9-99.0 Mean Platelet Volume 10.7 8.9-12.4 Platelet Count 290 155-360 Potassium Level 4.5 3.5-5.1 RDW Coefficient of Variation 16.0 High 11.7-14.4 Red Blood Count 5.18 3.90-5.40 Sodium Level 133 Low 136-145 White Blood Count 8.5 3.1-10.7 Laboratory test finding 04/24/2015 Bedside Glucose 176 High 70-110 Laboratory test finding 04/22/2015 Urine Bilirubin Negative Negative Urine Blood Negative Negative Urine Clarity Clear Clear Urine Color Yellow Yellow Urine Glucose (Ua) Negative Negative Urine Ketones Negative Negative Urine Leukocyte Esterase Negative Negative Urine Nitrite Negative Negative Urine Protein Negative Negative Urine Urobilinogen 0.2 0.2-1.0 Urine pH 6.5 6.5-7.5 Laboratory test finding 04/22/2015 Total Creatine Kinase 214 High 26-192 Laboratory test finding 04/21/2015 Alanine Aminotransferase 33 12-78 (Alt/SGPT) Albumin 3.4 3.4-5.0 Albumin/Globulin Ratio 0.7 Alkaline Phosphatase 100 45-117 Aspartate Amino Transf (Ast/Sgot) 24 15-37 Basophils # (Auto) 0.03 0.0-0.1 Basophils (%) (Auto) 0.3 0.0-1.1 Direct Bilirubin 0.1 0.0-0.2 Eosinophils # (Auto) 0.00 0.0-0.5 Eosinophils (%) (Auto) 0.0 0.0-6.6 Globulin 4.8 High 1.9-4.3 Indirect Bilirubin 0.2 0.0-0.9 Lipase 92 73-393 Lymphocytes # (Auto) 2.46 1.8-7.0 Lymphocytes (%) (Auto) 22.8 17.0-46.1 Monocytes # (Auto) 0.53 0.3-0.9 Monocytes (%) (Auto) 4.9 4.3-13.2 Neutrophils # (Auto) 7.78 High 1.0-7.0 Neutrophils (%) (Auto) 72.0 40.4-72.8 Red Cell Distribution Width 47.9 High 3-47 Total Bilirubin 0.3 0.2-1.0 Total Protein 8.2 6.4-8.2 1 E78.5,E11.9,E03.9,I50.32,E55.9 2 Note: Persistent reduction for 3 months or more in an eGFR <60 mL/min/1.73 m2 defines CKD. Patients with eGFR values >/=60 mL/min/1.73 m2 may also have CKD if evidence of persistent proteinuria is present. The original MDRD equation for estimated GFR is not valid for patients less than 18 years of age. Additional information may be found at www.k[facility].org. 3 Values below the stated reference ranges of AST and ALT can be seen in normal populations. Clinical correlation is suggested. 4 Reference Guidelines*: Desirable: ........... < 200 mg/dL Borderline High: ..... 200-239 mg/dL High: ................ >=240 mg/dL * The National Cholesterol Education Program (NCEP) 5 Reference Guidelines*: Normal: ............. < 150 mg/dL Borderline High: .... 150-199 mg/dL High: ............... 200-499 mg/dL Very High: .......... > 500 mg/dL * Source: National Cholesterol Education Program (NCEP) 6 Reference Guidelines*: Low HDL: ..... < 40 mg/dL Normal: ..... 40-60 mg/dL Desirable: ... > 60 mg/dL *The National Cholesterol Education Program(NCEP) 7 Reference Guidelines*: Optimal:........... <100 mg/dL Near Optimal....... 100-129 mg/dL Borderline High.... 130-159 mg/dL High............... 160-189 mg/dL Very High.......... >=190 mg/dL * Source: National Cholesterol Education Program (NCEP) 8 Elevated levels of HbA1c suggest the need for more aggressive treatment of glycemia. The [place] Diabetes Association recommends that a primary goal of therapy should be a HbA1c of <7% and that physicians should re-evaluate the treatment regimen in patients with HbA1c values consistently >8%. 9 Vitamin D deficiency has been defined by the [place] of [employer] and an Endocrine Society practice guideline as a level of serum 25-OH vitamin D less than 20 ng/mL (1,2). The Endocrine Society went on to further define vitamin D insufficiency as a level between 21 and 29 ng/mL (2). 1. IOM ([place] of [employer]). 2010. Dietary reference intakes for calcium and D. [place]: The National Academies Press. 2. Jose J MF, Antonia ARAYA, Marcus PITTS, et al. Evaluation, treatment, and prevention of vitamin D deficiency: an Endocrine Society clinical practice guideline. JCEM. 2010; 96(7):1911-30. Performed at: RN - [facility] [address] [id number] Sheet Metal Contractor: Ailyn Solorzano MD, Phone: [phone] 10 E11.9 11 Valid ratio could not be calculated due to non-numeric result. 12 I50.32 R60.0 13 Note: Persistent reduction for 3 months or more in an eGFR <60 mL/min/1.73 m2 defines CKD. Patients with eGFR values >/=60 mL/min/1.73 m2 may also have CKD if evidence of persistent proteinuria is present. The original MDRD equation for estimated GFR is not valid for patients less than 18 years of age. Additional information may be found at www.kdoqi.org. 14 Note: Persistent reduction for 3 months or more in an eGFR <60 mL/min/1.73 m2 defines CKD. Patients with eGFR values >/=60 mL/min/1.73 m2 may also have CKD if evidence of persistent proteinuria is present. The original MDRD equation for estimated GFR is not valid for patients less than 18 years of age. Additional information may be found at www.kdoqi.org. 15 Reference Guidelines*: Desirable: ........... < 200 mg/dL Borderline High: ..... 200-239 mg/dL High: ................ >=240 mg/dL * The National Cholesterol Education Program (NCEP) 16 Reference Guidelines*: Normal: ............. < 150 mg/dL Borderline High: .... 150-199 mg/dL High: ............... 200-499 mg/dL Very High: .......... > 500 mg/dL * Source: National Cholesterol Education Program (NCEP) 17 Reference Guidelines*: Low HDL: ..... < 40 mg/dL Normal: ..... 40-60 mg/dL Desirable: ... > 60 mg/dL *The National Cholesterol Education Program(NCEP) 18 Reference Guidelines*: Optimal:........... <100 mg/dL Near Optimal....... 100-129 mg/dL Borderline High.... 130-159 mg/dL High............... 160-189 mg/dL Very High.......... >=190 mg/dL * Source: National Cholesterol Education Program (NCEP) 19 Note: Persistent reduction for 3 months or more in an eGFR <60 mL/min/1.73 m2 defines CKD. Patients with eGFR values >/=60 mL/min/1.73 m2 may also have CKD if evidence of persistent proteinuria is present. The original MDRD equation for estimated GFR is not valid for patients less than 18 years of age. Additional information may be found at www.kdoqi.org. Procedures Date CPT Code Description Status Comment 02/20/2018 80947 EKG-Tracing And Report Completed 07/18/2017 Mammogram Completed 10/15/2016 61483 EKG-Tracing And Report Completed 03/28/2016 73142 Bronchospasm Provocation Completed Evaluation Multi Spirometric Determinati 03/28/2016 34412 Spirometry Completed 11/08/2015 Bone Mineral Density Test Completed per recordsDocument: 12/08/15 - Bone Scan Result 08/23/2015 14749 Stress Test Physician Super Completed Only 08/23/2015 75525 Stress Test Physician Super Completed Only 08/23/2015 43681 Stress Test Interpre And Report Completed Only 08/17/2015 92455 EKG-Tracing And Report Completed 08/16/2015 13377 Echocardiogram Complete Completed 08/09/2014 33607 Echocardiogram Complete Completed 05/12/2014 Mammogram Completed 04/28/2012 Mammogram Completed 04/18/2011 Mammogram Completed 01/27/2010 18004 Stress Test Interpre And Report Completed Only 01/27/2010 80142 Stress Test Physician Super Completed Only 01/22/2010 19585 EKG Interpretation And Report Completed Only Encounters Type Date Location Provider CPT E/M Dx Office Visit 04/18/2018 8:30a Primary Care Office Stephanie Kent, 52760 K59.00 MS, ASSISTANT PROJECT MANAGER-C, CNM J01.90 J44.9 Office Visit 04/15/2018 11:30a Primary Care Office Stephanie Kent, , [address] J01.90 ASSISTANT PROJECT MANAGER-C, CNM J44.9 R06.2 Office Visit 04/07/2018 1:20p [place] [address] I50.32 J44.9 E78.5 I10 E03.9 E11.9 L89.301 Office Visit 03/19/2018 1:30p [place] [address] J44.9 Office Visit 02/20/2018 10:00a Cardiology Office Oc Griffith, 22868 I50.32 Rupal, [facility] J44.9 Z87.891 E78.5 Office Visit 08/21/2017 1:30[place] [address] J44.9 G47.33 Z87.891 Z79.51 Office Visit 08/19/2017 9:45a [place] [address] R07.2 I50.32 G47.33 J44.9 I10 E78.2 Office Visit 02/18/2017 1:00p [place] [address] J44.9 G47.33 F17.211 Office Visit 02/13/2017 9:20a Cardiology Office Tamar Quan 29675 I50.32 MSN, ASSISTANT PROJECT MANAGER R60.0 J44.9 I10 Office Visit 10/15/2016 9:20a [place] [address] I50.32 R60.0 J44.9 G47.33 I10 Office Visit 07/23/2016 1:45p [place] [address] J44.9 G47.33 F17.211 Office Visit 03/20/2016 1:15p [place] [address] J44.9 G47.33 F17.211 Office Visit 03/15/2016 11:00a [place] [address] I50.32 R06.02 R60.0 J44.1 I10 E78.2 R07.89 Office Visit 11/23/2015 9:40a [place] [address] I50.32 R06.02 R60.0 J44.1 I10 Office Visit 09/23/2015 9:40a Cardiology [place] [address]134 R60.0 I50.32 R53.82 R06.02 R07.89 E78.2 Office Visit 08/17/2015 11:00a [place] [address] R06.02 R53.82 I50.32 R60.0 Office Visit 08/12/2015 1:00p [place] [address] J44.1 J44.1 G47.33 G47.33 F17.211 Office Visit 07/30/2015 11:08a [facility] Jolynn Rooney M.D. [address] [facility] J44.1 Office Visit 07/08/2015 10:31a [facility] [place] [address] J44.1 Medical Center Office Visit 04/22/2015 12:28p [facility] Malika Dunn, 81977 491.21 [facility] Center MBello Office Visit 08/09/2014 1:26p [facility] Gilda Juarez, [address] [facility] MBello 486 428.0 Office Visit 07/21/2014 1:36p [facility] Malika Dunn M.D. 30776 682.6 [facility] V15.88 Office Visit 06/20/2014 10:13a [facility] [place] [address] [facility] Plan of Care Future Appointment(s):09/22/2018 1:30 pm - Jacques Cartagena MD at Naghqvkhxio88/11 /2018 - Devi Odom MDE78.5 Hyperlipidemia, unspecifiedNew Labs: Comprehensive Metabolic PanelLDL Cholesterol ProfileComments:-Monitor LDL-LDL & lt;100 -on [id number] Essential (primary) hypertensionComments:-goal BP <130/ 80-Continue lisinopril 2.5mg vvaruM69.9 Hypothyroidism, unspecifiedNew Labs: Thyroid Stim HormoneFree E9Tjevwdvi:-slightly low tsh, -monitor tsh, free t4- decrease current medication dose to 205dlkM36.9 Type 2 diabetes mellitus without complicationsNew Labs:Glycohemoglobin R3jMzmvepqh/Creat Ratio, RandomComments:-check ldrU7b-msxfm microalbumin-goal hgbA1c 7%-Continue with annual optho exam with Dr. Gillis-on Statin-goal BP <130/80L89.301 Pressure ulcer of unspecified buttock, stage 1Comments:-Currently no open draining wound, slightly pink-has been following with Wound Care PRN-A&D ointment-Tried desitin-Tried Donut pillow-Advised frequent turning, cushion while vfyraofF76.9 Chronic obstructive pulmonary disease, unspecifiedComments:- on oxygen-continue followup with Pulmonary -Has some exp wheezes, advise her to use nebulizer-No abx or steroids at this time unless sx worsen-If sx worsen call back to officeAllNew Medication:Levothyroxine Sodium 100 mcgFollow up: Mammo and Bone density in 2 months in July fasting blood work in 3 months f/ u in 3 months
--- OUTSIDE RECORDS SUMMARY | 2018-06-14 15:16 | XMS REPORT ---
:1945 External Reference #:[id number] Author Organization [facility] Address [address], [address] [place] [address] Phone [phone] Care Team Providers Name Role Phone Iveth Ramos MD Care Team Information Pharmacy Care Coordinator Unavailable Iveth Ramos MD Primary Care Physician Unavailable Payers Type Date Identification Numbers Payment Provider Subscriber Commercial Policy Number: [id number] [employer] Shauna Bender PayID: [id number] [address] [address] [place] [address] Problems Date Description Provider Status Onset: 08/11/2015 [...] sleep apnea syndrome Oc Griffith Active M.D., [facility] Onset: 02/20/2018 Ex-smoker Oc Griffith Active M.D., [facility] Onset: 02/20/2018 Hyperlipidemia Oc Griffith Active M.D., [facility] Onset: 04/07/2018 Hypothyroidism Devi Odom MD Active [...] Form Strength Qnty SIG Indications Ordering Provider Prednisone 05/21 Active Tablets 20mg 10tab Take 2 J44.9 Gagen, s tablets Bianca once a day e, MS, by mouth AUTO BODY CUSTOMIZER-C, CNM Amoxicillin/Clav 05/21 Active Tablets 875-125mg 14tab take one J44.9 Gagen, ulanate s tablet Bianca Potassium every 12 e, MS, hours AUTO BODY CUSTOMIZER-C, CNM Levothyroxine 05/20 Active Tablets 100mcg 90tab 1 by mouth Ilene, Sodium /2017 s every day MD Devi Incruse Ellipta 05/13 Active Aerosol 62.5mcg/I 1mont take 1 puff Kheti , nh h once daily. MD Jacques Polyethylene 04/18 Active Packet 3350NF 28uni Take one K59.00 Gagen, Glycol 335 ts package Bianca with 10 oz e, MS, of water AUTO BODY CUSTOMIZER-C, every day CNM Atrovent 04/15 Active Solution 0.06% use 2 J01.90 Gagen sprays in Bianca each e, MS, nostril AUTO BODY CUSTOMIZER-C, twice a day CNM Multivitamin 04/07 Active Tablets 1 by mouth Ilene, every day MD Devi Vitamin E 04/07 Active Capsules 400Unit 1 tab a day Ilene MD Devi Nebulizer 08/07 Active Kit 1unit please Tressaeti, Kit/Tubing/Mouth /2016 s provide MD Jacques piece patient with 1 kit. nebulizer, tubing, mouth piece. diagnosis: copd Torsemide 09/23 Active Tablets 20mg 90tab 1 by mouth R60.0 Quan, /2015 s every day Tamar March , MSN, AUTO BODY CUSTOMIZER Spironolactone 09/23 Active Tablets 25mg 90tab 1 by mouth R60.0 Gipson, s every day MD Alesha Lisinopril Active Tablets 2.5mg 1 by mouth Unknown /0000 every day Aspir-[address] 81mg 1 by mouth Unknown / every day Albuterol Active Nebulizer (2.5mg/3M 180ml use 1 vial Gagen, Sulfate /0000 L) 0.083% every 6 Bianca hours as e, MS, needed for AUTO BODY CUSTOMIZER-C, shortness CNM of breath. icd code j44.9 copd Pantoprazole Active Tablets DR 40mg 1 by mouth Unknown Sodium /0000 every day Symbicort Active Aerosol 160-4.5mc 2 twice Unknown /0000 g/Act puff twice a day Atorvastatin Active Tablets 40mg 1 by mouth Unknown Calcium /0000 every day Metformin HCL Active Tablets 500mg take one Unknown /0000 tablet daily Amoxicillin/Clav 04/15 Hx Tablets 875-125mg 14tab take one J01.90 Gagen , ulanate /2017 s tablet Bianca Potassium - every 12 e, MS, 04/18 hours AUTO BODY CUSTOMIZER-C, CNM Doxycycline 04/15 Hx Tablets 100mg 14tab Take one J01.90 Gagen, Monohydrate /2017 s tablet two Bianca - times a day e, MS, 04/15 AUTO BODY CUSTOMIZER-C, CNM Levofloxacin 04/15 Hx Tablets 500mg 5tabs Take one J01.90 Gagen, tablet Bianca - every day e, MS, 04/15 AUTO BODY CUSTOMIZER-C, CNM Levofloxacin 04/15 Hx Tablets 750mg 5tabs Take one J01.90 Gagen, tablet Bianca - every day e, MS, 04/15 AUTO BODY CUSTOMIZER-C, CNM Pseudoephedrine 04/15 Hx Tablets 30mg 30tab Take one J01.90 Gagen, HCL s every 4-6 Bianca - hours as e, MS, 04/15 needed for AUTO BODY CUSTOMIZER-C congestion CNM Loratadine 04/15 Hx Tablets 10mg 1tabs Take one J01.90 Gagen, tablet Bianca - every e, MS, 04/15 morning AUTO BODY CUSTOMIZER-C, CNM Fluticasone 04/15 Hx Suspension 50mcg/Act 31.6m To use 1 or J01.90 Gagen, Propionate Nasal l 2 sprays in Bianca Clubb Allergy - each e, MS, Relief 24- Hour 04/15 nostril AUTO BODY CUSTOMIZER-C CNM Amoxicillin/Clav 04/15 Hx Tablets 875-125mg 14tab take one J01.90 Gagen , ulanate s tablet Bianca Potassium - every 12 e, MS, 05/20 hours AUTO BODY CUSTOMIZER-C CNM Atrovent HFA 04/15 Hx Aerosol 17mcg/Act 12.90 use 2 J01.90 Gag 0gm sprays in Bianca - each e, MS, 04/15 nostril AUTO BODY CUSTOMIZER-C twice a day CNM Daliresp 02/18 Hx Tablets 500mcg 30tab 1 by mouth Yoon Cartagena, s every day MD Jacques - 03/19 Incruse Ellipta 02/18 Hx Aerosol 62.5mcg/I 1mont take 1 puff J44.Yrn Cartagena nh h once daily. MD Jacques Levoxyl 00 Hx Tablets 125mcg 1 po daily - 04/07 Estroven + Hx Tablets 1/2 weekly Unknown Maximumstrength Omeprazole [address] 20mg 1 by mouth Unknown every day Lovastatin Hx Tablets 40mg 1 by mouth Unknown /0000 every day Tramadol HCL 00 Hx Tablets 50mg take one Unknown /0000 tablet by mouth every 4 hours as needed pain. Spiriva Respimat 00 Hx Aerosol 2.5mcg/Ac take 1 puff Unknown /0000 t once daily. - 07/23 Pulmicort 00 Hx Aerosol 180mcg/Ac 1 puff Unknown Flexhaler /0000 t twice a day - 03/20 Furosemide Hx Tablets 40mg 1 by mouth R60.0 Unknown /0000 every day - 09/23 Cephalexin Hx Capsules 500mg 3 tabs po Unknown /0000 daily Levothyroxine Hx Tablets 112mcg 90tab 1 tab by Ilene, Sodium /0000 s mouth daily MD Devi - on an empty 05/20 Vital Signs Date Vital Result Comment 05/21/2018 BP Systolic 122 mmHg BP Diastolic 54 mmHg Body Temperature 98.1 F Heart Rate 71 /min Respiratory Rate 20 /min Weight 211.12 lb O2 % BldC Oximetry 96 % 2.5L Pain Level 0 05/20/2018 BP Systolic Sitting Left Arm 134 mmHg BP Diastolic Sitting Left Arm 80 mmHg Body Temperature 96.7 F Heart Rate 77 /min Respiratory Rate 20 /min Height 66 inches 5'6" Weight 209.00 lb BMI (Body Mass Index) 33.7 kg/m2 BSA (Body Surface Area) 2.04 m2 [place] body weight in kilograms 59 O2 % BldC Oximetry 94 % w O2 @ 2.5l via n/c 04/18/2018 BP Systolic Sitting Left Arm 120 mmHg BP Diastolic Sitting Left Arm 64 mmHg Body Temperature 97.8 F Heart Rate 79 /min Respiratory Rate 24 /min Height 66 inches 5'6" Weight 206.00 lb BMI (Body Mass Index) 33.2 kg/m2 BSA (Body Surface Area) 2.03 m2 [place] body weight in kilograms 59 O2 % BldC Oximetry 95 % w/2.5L O2 via n/c 04/15/2018 BP Systolic 118 mmHg BP Diastolic 67 mmHg Body Temperature 97.5 F Heart Rate 71 /min Respiratory Rate 20 /min Height 66 inches 5'6" Weight 206.00 lb BMI (Body Mass Index) 33.2 kg/m2 BSA (Body Surface Area) 2.03 m2 [place] body weight in kilograms 59 O2 % BldC Oximetry 96 % 04/07/2018 BP Systolic Sitting Left Arm 126 mmHg BP Diastolic Sitting Left Arm 71 mmHg Body Temperature 97.6 F Heart Rate 70 /min Respiratory Rate 24 /min Height 66 inches 5'6" Weight 208.00 lb BMI (Body Mass Index) 33.6 kg/m2 BSA (Body Surface Area) 2.03 m2 [place] body weight in kilograms 59 O2 % BldC Oximetry 96 % 02 @ 2.5l via n/c 03/19/2018 BP Systolic Sitting Left Arm 100 mmHg BP Diastolic Sitting Left Arm 68 mmHg Heart Rate 79 /min Respiratory Rate 18 /min Height 66 inches 5'6" Weight 207.00 lb BMI (Body Mass Index) 33.4 kg/m2 BSA (Body Surface Area) 2.03 m2 [place] body weight in kilograms 59 O2 % BldC Oximetry 96 % 2.5L/Min 02/20/2018 BP Systolic Sitting Left Arm 130 mmHg BP Diastolic Sitting Left Arm 70 mmHg Heart Rate 85 /min Height 66 inches 5'6" Weight 207.00 lb BMI (Body Mass Index) 33.4 kg/m2 BSA (Body Surface Area) 2.03 m2 [place] body weight in kilograms 59 O2 % BldC Oximetry 972. % 08/21/2017 BP Systolic Sitting Left Arm 128 mmHg BP Diastolic Sitting Left Arm 60 mmHg Heart Rate 87 /min Respiratory Rate 16 /min Height 66 inches 5'6" Weight 210.00 lb BMI (Body Mass Index) 33.9 kg/m2 BSA (Body Surface Area) 2.04 m2 [place] body weight in kilograms 59 O2 % BldC Oximetry 97 % 2.5 L 08/19/2017 BP Systolic Sitting Right Arm 112 mmHg BP Diastolic Sitting Right Arm 64 mmHg Heart Rate 80 /min Respiratory Rate 16 /min Height 66 inches 5'6" Weight 209.00 lb BMI (Body Mass Index) 33.7 kg/m2 BSA (Body Surface Area) 2.04 m2 [place] body weight in kilograms 59 02/18/2017 BP Systolic Sitting Right Arm 112 mmHg BP Diastolic Sitting Right Arm 64 mmHg Heart Rate 78 /min Respiratory Rate 16 /min Height 66 inches 5'6" Weight 214.00 lb BMI (Body Mass Index) 34.5 kg/m2 BSA (Body Surface Area) 2.06 m2 [place] body weight in kilograms 59 O2 % BldC Oximetry 94 % 2.5L 02/13/2017 BP Systolic Sitting Left Arm 106 mmHg BP Diastolic Sitting Left Arm 60 mmHg Heart Rate 60 /min Respiratory Rate 16 /min Height 66 inches 5'6" Weight 214.00 lb BMI (Body Mass Index) 34.5 kg/m2 BSA (Body Surface Area) 2.06 m2 [place] body weight in kilograms 59 10/15/2016 BP [...] kg/m2 BSA (Body Surface Area) 2.08 m2 [place] body weight in kilograms 59 03/15/2016 BP [...] 1 Lymph % 31.2 % 20.0-42.0 1 Taylor % 6.9 % 4.3-13.2 1 Eo% 3.6 % 0.0-6.6 1 Bas% 0.4 % 0.0-1.1 1 Neut# 3.10 K/uL 1.8-7.0 1 Lymph # 1.67 K/uL 1.0-4.0 1 Taylor # 0.37 K/uL 0.3-0.9 1 Eos # [...] 6.5-7.5 Ua Blood - Negative Ua Specific [place] 1.015 1.010-1.030 Ua Ketones - Negative Ua [...] % 40.4-72.8 Lymph % 25.0 % 17.0-46.1 Taylor % 5.4 % 4.3-13.2 Eo% 0.0 % 0.0-6.6 Bas% 0.3 % 0.0-1.1 Neut# 3.96 K/uL 1.0-7.0 Lymph # 1.43 K/uL Low 1.8-7.0 Taylor # 0.31 K/uL 0.3-0.9 Eos # 0.00 [...] Negative Urine Protein Negative Negative Urine Specific [place] 1.010 1.010-1.030 Urine Urobilinogen 0.2 0.2-1.0 Urine [...] Negative Urine Protein Negative Negative Urine Specific [place] 1.015 1.010-1.030 Urine Urobilinogen 1.0 0.2-1.0 Urine [...] for more aggressive treatment of glycemia. The [place] Diabetes Association recommends that a primary goal of therapy should be a HbA1c of <7% and that physicians should re-evaluate the treatment regimen in patients with HbA1c values consistently >8%. 9 Vitamin D deficiency has been defined by the [place] of [employer] and an Endocrine Society practice guideline as a level of serum 25-OH vitamin D less than 20 ng/mL (1,2). The Endocrine Society went on to further define vitamin D insufficiency as a level between 21 and 29 ng/mL (2). 1. IOM ([place] of [employer]). 2010. Dietary reference intakes for calcium and D. [place]: The National Academies Press. 2. Jose J MF, Antonia ARAYA, Marcus PITTS, et al. Evaluation, treatment, and prevention of vitamin D deficiency: an Endocrine Society clinical practice guideline. JCEM. 2010; 96(7):1911-30. Performed at: - [facility] [address] [id number] [employer] Operator: Ailyn Solorzano MD, Phone: [phone] E11.9 11 Valid ratio could not [...] Date CPT Code Description Status Comment 02/20/2018 69162 EKG-Tracing And Report Completed 07/18/2017 Mammogram Completed 10/15/2016 97706 EKG-Tracing And Report Completed 03/28/2016 59956 Bronchospasm Provocation Completed Evaluation Multi Spirometric Determinati 03/28/2016 12683 Spirometry Completed 11/08/2015 Bone Mineral Density Test Completed per recordsDocument: 12/08/15 - Bone Scan Result 08/23/2015 96018 Stress Test Physician Super Completed Only 08/23/2015 54079 Stress Test Physician Super Completed Only 08/23/2015 50309 Stress Test Interpre And Report Completed Only 08/17/2015 95163 EKG-Tracing And Report Completed 08/16/2015 56458 Echocardiogram Complete Completed 08/09/2014 44312 Echocardiogram Complete Completed 05/12/2014 Mammogram Completed 04/28/2012 Mammogram Completed 04/18/2011 Mammogram Completed 01/27/2010 16742 Stress Test Interpre And Report Completed Only 01/27/2010 62845 Stress Test Physician Super Completed Only 01/22/2010 29040 EKG Interpretation And Report Completed Only Encounters Type Date Location Provider CPT E/M Dx Office Visit 05/21/2018 1:00p Primary Care Office Estelitayojana Stephanie, [address] J44.9 MS, JARET DENNEY R06.2 Z91.012 Z28.04 Office Visit 05/20/2018 10:40a [place] [address] E78.5 I10 E03.9 E11.9 L89.301 J44.9 Office Visit 04/18/2018 8:30a Primary Care Office Donte Stephanie, , [address]5485 K59.00 JARET DENNEY J01.90 J44.9 Office Visit 04/15/2018 11:30a Primary Care Office Donte Stephanie, , 54083 J01.90 JARET DENNEY J44.9 R06.2 Office Visit 04/07/2018 1:20p [place] [address] I50.32 I50.32 J44.9 J44.9 E78.5 I10 I10 E03.9 E11.9 L89.301 Office Visit 03/19/2018 1:30p [place] [address] J44.9 Office Visit 02/20/2018 10:00a Cardiology Office Oc Griffith, 32754 I50.32 Rupal, [facility] J44.9 Z87.891 E78.5 Office Visit 08/21/2017 1:30p [place] [address] J44.9 G47.33 Z87.891 Z79.51 Office Visit 08/19/2017 9:45a [place] [address] R07.2 I50.32 G47.33 J44.9 I10 E78.2 Office Visit 02/18/2017 1:00p [place] [address] J44.9 G47.33 F17.211 Office Visit 02/13/2017 9:20a Cardiology Office Tamar Quan 08202 I50.32 MSN, AUTO BODY CUSTOMIZER R60.0 J44.9 I10 Office Visit 10/15/2016 9:20a [place] [address] I50.32 R60.0 J44.9 G47.33 I10 Office Visit 07/23/2016 1:45p [place] [address] J44.9 G47.33 F17.211 Office Visit 03/20/2016 1:15p [place] [address] J44.9 G47.33 F17.211 Office Visit 03/15/2016 11:00a Cardiology [place] [address] I50.32 R06.02 R60.0 J44.1 I10 E78.2 R07.89 Office Visit 11/23/2015 9:40a [place] [address] I50.32 R06.02 R60.0 J44.1 I10 Office Visit 09/23/2015 9:40a Cardiology Office Shannen Noble ANP 33989 R60.0 I50.32 R53.82 R06.02 R07.89 E78.2 Office Visit 08/17/2015 11:00a [place] [address] R06.02 R53.82 I50.32 R60.0 Office Visit 08/12/2015 1:00p [place] [address] J44.1 J44.1 G47.33 G47.33 F17.211 Office Visit 07/30/2015 11:08a [facility] Jolynn Rooney M.D. [address] [facility] J44.1 Office Visit 07/08/2015 10:31a [facility] [place] [address] J44.1 Medical Center Office Visit 04/22/2015 12:28p [facility] Malika Dunn, [address] [facility] M.DSuzi Office Visit 08/09/2014 1:26p [facility] Gilda Juarez, [address] 682.6 [facility] M.Aleah 486 428.0 Office Visit 07/21/2014 1:36p [facility] Malika Dunn M.D. 26452 682.6 [facility] V15.88 Office Visit 06/20/2014 10:13a [facility] [place] [address] 491.21 [facility] Plan of Care Future Appointment(s):07/30/2018 10:40 am - Devi Odom MD at Primary Care Juobvh2109/22/2018 1:30 pm - Jacques Cartagena MD at Gkrhsttimjs06/12/2018 - Stephanie Kent MS, AUTO BODY CUSTOMIZER-C, CNMJ44.9 Chronic obstructive pulmonary disease, unspecifiedNew Medication:Prednisone 20 mgAmoxicillin/Clavulanate Potassium 875- 125 mgComments:Patient counseled on using humidifier, Mucinex, increase water. Patient ot report worsening symptomsor go to ER if increasing difficulty breathing.R06.2 WheezingComments:Patient states she would like to do her albuterol treatment at home and have enough abrmjdtqbqO49.012 Allergy to eggsComments:In majority of cases Patient 's would benefit from flu vaccination , despite allergy to eggs, latest recommendation. Patient is nervous with allergy to eggs. I will send Patient to event executive to further discuss with them.Z28.04 Immuniz not crd out bec patient allergy to vaccine or cmpntAllFollow up:Patient to have referral to event executive Dr Gipson Keep next scheduled OV or C/B if worsens
[2018-06-14 15:24] VITALS: BP 100/53
--- NOTE | 2018-06-14 15:38 | UC ---
Respiratory Complaint HPI - HPI Summary HPI Summary: Pt c/o cough, fever, malaise, X 1 day. Pt has hx of COPD and uses O2 NC - History of Current Complaint Chief Complaint: UCRespiratory Stated Complaint: FEVER,COUGH Time Seen by Provider: 06/14/18 15:17 Hx Obtained From: Patient ?: No Onset/Duration: Sudden Onset Severity Initially: Mild Severity Currently: Moderate Pain Intensity: 5 Character: Cough: Nonproductive Aggravating Factors: Exertion, Deep Breaths, Recumbent Position Alleviating Factors: Nothing Associated Signs And Symptoms: Positive: Fever, URI - Risk Factors Pulmonary Embolism Risk Factors: Negative Cardiac Risk Factors: Diabetes Pseudomonas Risk Factors: Chronic Lung Disease Tuberculosis Risk Factors: Negative - Allergies/Home Medications Allergies/Adverse Reactions: Allergies Allergy/AdvReac Type Severity Reaction Status Date / Time egg Allergy Unknown Verified 06/14/18 15:24 Reaction Details pseudoephedrine Allergy Rash Verified 06/14/18 15:24 PMH/Surg Hx/FS Hx/Imm Hx - Surgical History Surgical History: Yes Surgery Procedure, Year, and Place: HYSTERECTOMY. CATARACTS - Family History Known Family History: Positive: Diabetes - Social History Alcohol Use: None Substance Use Type: None Smoking Status (MU): Former Smoker Have You Smoked in the Last Year: No When Did the Patient Quit Smoking/Using Tobacco: 2010 Review of Systems Constitutional: Fever, Chills Skin: Negative Eyes: Negative ENT: Sinus Congestion Respiratory: Shortness Of Breath - at base line, Cough Cardiovascular: Negative Gastrointestinal: Negative Genitourinary: Negative Motor: Negative, Weakness - generalized at baseline Neurovascular: Negative Musculoskeletal: Negative Neurological: Negative Psychological: Negative Is Patient Immunocompromised?: No All Other Systems Reviewed And Are Negative: Yes Physical Exam Triage Information Reviewed: Yes Appearance: Ill-Appearing Vital Signs: Initial Vital Signs Temp 99.3 F 06/14/18 15:18 Pulse 82 06/14/18 15:18 Resp 20 06/14/18 15:18 BP 100/53 06/14/18 15:18 Pulse Ox 92 06/14/18 15:18 Vital Signs Reviewed: Yes Eye Exam: Normal ENT Exam: Other ENT: Positive: Other - NC in place Dental Exam: Normal Neck exam: Normal Respiratory Exam: Other Respiratory: Positive: Decreased breath sounds, Wheezing Cardiovascular Exam: Normal Musculoskeletal Exam: Normal Neurological Exam: Normal Psychological Exam: Normal Skin Exam: Normal UC Diagnostic Evaluation - Laboratory O2 Sat by Pulse Oximetry: 92 Respiratory Course/Dx - Course Course Of Treatment: Pt refused chest xray - Differential Dx/Diagnosis Differential Diagnosis/HQI/PQRI: Bronchitis, Other - pneumonia Provider Diagnoses: bronchitis Discharge - Sign-Out/Discharge Documenting (check all that apply): Patient Departure All imaging exams completed and their final reports reviewed: No Studies - pt refused xray - Discharge Plan Condition: Stable Disposition: HOME Prescriptions: DOXYcycline CAP(*) [DOXYcycline 100MG CAP(*)] 100 mg PO Q12H #20 cap predniSONE TAB* [Deltasone 20 MG TAB*] 20 mg PO DAILY #4 tab Patient Education Materials: Acute Bronchitis (ED) Referrals: Devi Odom MD [Primary Care Provider] - If Needed - Billing Disposition and Condition Condition: STABLE Disposition: Home
== END 2018-06-14 15:47 | disposition home or self-care (01) ==
LOC: UCCORT 14:41
DX: J40 Bronchitis, not specified as acute or chronic (principal); Z99.81 Dependence on supplemental oxygen; J44.9 Chronic obstructive pulmonary disease, unspecified; Z88.8 Allergy status to other drugs, medicaments and biological substances; Z87.891 Personal history of nicotine dependence
CPT/HCPCS: 99212; G0463